=== PATIENT | female | born 1980 | race Caucasian/White ===

== ENCOUNTER 2017-05-05 14:36 | Inpatient (IN) | payer OTHER ==
[~2017-05-05] VITALS: Ht 160 cm; Wt 47.2 kg
--- NOTE | 2017-05-05 15:50 | NUR ---
36 year old FEMALE admitted to room # 527 for stabilization. 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 Compliant with admission procedure.
[2017-05-05 15:55] LABS: HEMATOCRIT 39.9 % (37.0-47.0); HEMOGLOBIN 12.6 g/dl (12.0-16.0); MEAN CELL VOLUME 91.5 fl (81.0-99.0); MEAN CORPUSCULAR HGB 28.9 pg (27.0-31.0); MEAN CORPUSCULAR HGB CONC 31.6 g/dl (33.0-37.0); MEAN PLATELET VOLUME 10.2 fl (9.6-12.3); PLATELET COUNT AUTOMATED 165 10*3/uL (130-400); RED BLOOD COUNT 4.36 10*6/uL (4.10-5.10); RED CELL DISTRI WIDTH 15.9 % (0-14.5); WHITE BLOOD COUNT 8.5 10*3/uL (4.8-10.8)
[2017-05-05 16:00] VITALS: BP 117/62
[2017-05-05 16:04] LABS: INTERNATIONAL NORM RATIO 1.1 (2.0-3.5)
[2017-05-05 16:15] LABS: ALBUMIN 3.4 gm/dl (3.1-4.5); ALKALINE PHOSPHATASE 436 U/L (45-117); BUN 13 mg/dl (7-24); CHLORIDE 104 mmol/L (98-107); CREATININE 0.74 mg/dL (0.55-1.02); LIPASE 342 U/L (73-393); POTASSIUM 3.3 mmol/L (3.5-5.1); SGPT/ALT 732 U/L (12-78); SODIUM 141 mmol/L (136-145); TOTAL PROTEIN 7.2 gm/dL (6.4-8.2)
[2017-05-05 16:16] LABS: BILIRUBIN 2+ (NEGATIVE); BLOOD 3+ (NEGATIVE); CLARITY CLEAR (CLEAR); COLOR YELLOW (YELLOW); GLUCOSE NEGATIVE (NEGATIVE); KETONE NEGATIVE (NEGATIVE); LEUKO ESTERASE NEGATIVE (NEGATIVE); NITRITE NEGATIVE (NEGATIVE); SPECIFIC GRAVITY 1.025 (1.005-1.030)
--- NOTE | 2017-05-05 16:17 | NUR ---
D/C PLAN: PATIENT WANTS TO GO TO OUTPATIENT TREATMENT. SHE WANTS TO GO TO [facility] AND [facility] FOR HER AFTERCARE PLAN. 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
[2017-05-05 16:20] LABS: BASOPHILS 1 % (0-1); BETA-HCG, QUANT < 1.0 mIU/mL (1-3); ETHYL ALCOHOL < 3.0 mg/dl (<3); PLATELET SUFFICIENCY NORMAL (NORMAL); SGOT/AST 1105 IU/L (3-35); TOTAL CELLS COUNTED 100 #CELLS
[2017-05-05 16:30] LABS: BACTERIA 1+; CALCIUM OXALATE CRYSTALS 1+; RBC 16-20 rbc/hpf (0-2)
[2017-05-05 16:31] LABS: URINE AMPHETAMINES < 1000 (1000ng/ml); URINE BARBITURATES < 200 (200ng/ml); URINE BENZODIAZEPINES > 200 (200ng/ml); URINE CANNABINOIDS (THC) < 50 (50ng/ml); URINE COCAINE > 300 (300ng/ml); URINE METHADONE < 300 (300ng/ml); URINE OPIATES > 300 (300ng/ml)
[2017-05-05 16:35] LABS: URINE PHENCYCLIDINE < 25 (25ng/ml)
[2017-05-05] MEDS ORDERED: NEURONTIN100 MG PO (19:11)
[2017-05-05] MEDS ORDERED: ZOLOFT100 MG PO (19:12)
[2017-05-05] MEDS ORDERED: ZOFRAN4 MG PO (19:13)
[2017-05-05] MEDS ORDERED: BUSPAR5 MG PO (19:13)
[2017-05-05] MEDS ORDERED: ACEBUTOLOL HCL200 MG PO (19:14)
--- NOTE | 2017-05-05 19:14 | NUR ---
MEDS VERIFIED WITH PHARMACY. DR Claudia WEST NOTIFIED.
[2017-05-05 20:00] VITALS: BP 140/83
[2017-05-05 23:00] VITALS: BP 137/61
--- NOTE | 2017-05-05 23:43 | NUR ---
Patient reports the following symptoms of withdrawal: body aches, leg pain, nausea and cocaine cravings. Patient given scheduled/PRN medication to control withdrawal symptoms. Close observation will be maintained.
[2017-05-06] VITALS: BP 106/65
--- NOTE | 2017-05-06 00:45 | NUR ---
Patient resting quietly in bed with eyes closed. PRN medications effective. Will continue to monitor. Call light within reach.
--- NOTE | 2017-05-06 01:17 | NUR ---
24 HR chart check completed.
[2017-05-06 04:00] VITALS: BP 106/64
--- NOTE | 2017-05-06 05:50 | NUR ---
Medicated with Vistaril po prn for anxiety. Will monitor effectiveness. Call light within reach.
[2017-05-06 06:22] LABS: ALBUMIN 3.2 gm/dl (3.1-4.5); BUN 9 mg/dl (7-24); CHLORIDE 107 mmol/L (98-107); CREATININE 0.58 mg/dL (0.55-1.02); POTASSIUM 3.5 mmol/L (3.5-5.1); SGPT/ALT 725 U/L (12-78); SODIUM 141 mmol/L (136-145); TOTAL PROTEIN 6.5 gm/dL (6.4-8.2)
[2017-05-06 06:27] LABS: SGOT/AST 1162 IU/L (3-35)
[2017-05-06 06:28] LABS: ALKALINE PHOSPHATASE 405 U/L (45-117)
[2017-05-06 08:00] VITALS: BP 130/74
--- NOTE | 2017-05-06 13:43 | NUR ---
PATIENT MEDICATED WITH VISTARIL AT THIS TIME FOR COMPLAINTS OF AGITATION. WILL MONITOR.
--- NOTE | 2017-05-06 14:35 | NUR ---
PER PATIENT, MEDICATION HAS BEEN EFFECIVE. NO FURTHER COMPLAINTS.
[2017-05-06 16:00] VITALS: BP 135/82
--- NOTE | 2017-05-06 16:26 | NUR ---
PATIENT MEDICATED WITH ZOFRAN & IMODIUM AT THIS TIME FOR COMPLAINTS OF NAUSEA AND DIARRHEA. WILL MONITOR FOR EFFECTIVENESS.
[2017-05-06 20:00] VITALS: BP 128/78
--- NOTE | 2017-05-06 20:29 | NUR ---
PT ASSSESSED AT THIS TIME, ALERT ORIENTED AND LETHARGIC. RESPONDS TO VERBAL STIMULI. HEART RATE REGULAR, 80 UPON AUSCULATATION. LUNGS CLEAR THROUGHOUT. ACTIVE BSX4, NO EDEMA NOTED. DENIES BODY ACHES AND STATES THAT SHE JUST WANTS TO SLEEP. ALL SAFETY MEASURES IN PLACE, CALL LIGHT IN REACH.
--- NOTE | 2017-05-06 21:30 | NUR ---
PT C/O RESTLESSNESS. MEDICATED WITH REQUIP AT THIS TIME, ALONG WITH ALL OTHER SCHEDULED HS MEDICATIONS. MEDS TAKEN WITH EASE. RESPIRATIONS EASY AND UNLABORED. NO S/S OF DISTRESS. PT CURRENTLY LYING IN BED.
--- NOTE | 2017-05-06 22:15 | NUR ---
PT REQUESTS TRAZODONE TO HELP HER SLEEP. MEDICATION ADMINISTERED PO AND TAKEN WITH EASE. WILL MONITOR FOR EFFECTIVENESS.
--- NOTE | 2017-05-06 22:20 | NUR ---
REQUIP EFFECTIVE PER PT. PT RESTING IN BED AT THIS TIME.
--- NOTE | 2017-05-06 23:15 | NUR ---
PT TRAZODONE EFFECTIVE. PT RESTING IN BED, RESPIRATIONS EASY. NO S/S OF DISTRESS.
[2017-05-07] VITALS: BP 120/78
--- NOTE | 2017-05-07 01:23 | NUR ---
24 HR chart check completed.
--- NOTE | 2017-05-07 04:13 | NUR ---
PT NOT AWAKENED PER [facility] POLICY. RESPIRATIONS EASY AND UNLABORED, 16. NO S/S OF PAIN OR DISTRESS.
--- NOTE | 2017-05-07 05:00 | NUR ---
PT C/O MUSCLE ACHES, ABDOMINAL CRAMPING, AND ANXIETY. ROBAXIN, BENTYL, AND VISTARIL ADMINISTERED PO AT THIS TIME. WILL MONITOR FOR EFFECTIVENESS. PT CURRENTLY LYING IN BED, ALL SAFETY MEASURES IN PLACE.
--- NOTE | 2017-05-07 05:59 | NUR ---
ROBAXIN, VISTARIL, AND BENTYL EFFECTIVE PER PT. PT RESTING IN BED, RESPIRATIONS EASY AND UNLABORED. CALL LIGHT IN REACH.
[2017-05-07 07:38] LABS: BUN 7 mg/dl (7-24); CHLORIDE 105 mmol/L (98-107); POTASSIUM 3.5 mmol/L (3.5-5.1); SODIUM 140 mmol/L (136-145)
[2017-05-07 07:47] LABS: ALKALINE PHOSPHATASE 377 U/L (45-117); CREATININE 0.67 mg/dL (0.55-1.02); SGPT/ALT 792 U/L (12-78); TOTAL PROTEIN 6.5 gm/dL (6.4-8.2)
--- NOTE | 2017-05-07 07:47 | NUR ---
prn motrin given for 7/10 back pain. prn requip given for restless legs.
[2017-05-07 07:51] LABS: SGOT/AST 1222 IU/L (3-35)
[2017-05-07 08:00] VITALS: BP 113/68
--- NOTE | 2017-05-07 08:45 | NUR ---
PRN MOTRIN AND REQUIP EFFECTIVE, PT REPORTS HER BACK PAIN 4/10 AND HER RESTLESS LEG HAS STOPPED.
--- NOTE | 2017-05-07 11:41 | NUR ---
prn vistaril given for anxiety at pt request.
--- NOTE | 2017-05-07 12:41 | NUR ---
PRN VISTARIL EFFECTIVE, PT REPORTS ANXIETY HAS LESSENED.
--- NOTE | 2017-05-07 13:40 | NUR ---
PRN BENTYL GIVEN FOR PT REPORT STOMACH PAIN 4/10.
--- NOTE | 2017-05-07 14:40 | NUR ---
PRN BENTYL EFFECTIVE, PT DENIES STOMACH PAIN.
[2017-05-07 16:00] VITALS: BP 138/95
--- NOTE | 2017-05-07 17:42 | NUR ---
PRN ZOFRAN GIVEN FOR PT REPORT NAUSEA, NO VOMITING.
--- NOTE | 2017-05-07 18:42 | NUR ---
PRN ZOFRAN EFFECTIVE, PT REPORTS NAUSEA HAS IMPROVED AND SHE WAS ABLE TO EAT HER DINNER.
[2017-05-07 20:00] VITALS: BP 112/68
--- NOTE | 2017-05-07 20:00 | NUR ---
PT ASSESSED AT THIS TIME, PT ALERT AND ORIENTED WITH LETHARGY. LUNGS CTA, HEART RATE REGULAR AND 80 BPM UPON AUSCULTATION. NORMOACTIVE BOWEL SOUNDS. PT DENIES ANY PAIN OR PROBLEMS WITH URINATION. PT C/O HEADACHE AND INSOMNIA. TRAZODONE AND IBUPROFEN ADMINISTERED AT THIS TIME. WILL MONITOR FOR EFFECTIVENESS. PT CURRENTLY LYING IN BED, RESPIRATIONS EASY, ENCOURAGED TO USE CALL LIGHT FOR ANY NEEDS OR QUESTIONS.
--- NOTE | 2017-05-07 21:00 | NUR ---
TRAZODONE AND IBUPROFEN EFFECTIVE. PT RESTING IN BED, RESPIRATIONS EASY AND UNLABORED. NO S/S OF DISTRESS.
[2017-05-08] VITALS: BP 124/69
--- NOTE | 2017-05-08 02:00 | NUR ---
PT RESTING IN BED, RESPIRATIONS EASY AND UNLABORED. NO S/S OF DISTRESS. ALL SAFETY MEASURES IN PLACE.
--- NOTE | 2017-05-08 03:58 | NUR ---
24 HR chart check completed.
[2017-05-08 05:34] LABS: SGPT/ALT 783 U/L (12-78)
[2017-05-08 05:40] LABS: SGOT/AST 1093 IU/L (3-35)
[2017-05-08 06:02] LABS: BASO # 0.1 10*3/uL (0.0-0.1); BASO % 1.1 % (0.0-1.0); EOS # 0.3 10*3/uL (0.0-0.4); EOS % 3.9 % (1.0-4.0); HEMATOCRIT 38.1 % (37.0-47.0); HEMOGLOBIN 12.5 g/dl (12.0-16.0); LYMPH # 2.4 10*3/uL (1.3-4.4); LYMPH % 29.1 % (27.0-41.0); MEAN CELL VOLUME 88.6 fl (81.0-99.0); MEAN CORPUSCULAR HGB 29.1 pg (27.0-31.0); MEAN CORPUSCULAR HGB CONC 32.8 g/dl (33.0-37.0); MEAN PLATELET VOLUME 10.4 fl (9.6-12.3); MONO # 1.2 10*3/uL (0.1-1.0); MONO % 14.2 % (3.0-9.0); NEUT # 4.3 10*3/uL (2.3-7.9); NEUT % 51.3 % (47.0-73.0); PLATELET COUNT AUTOMATED 198 10*3/uL (130-400); RED CELL DISTRI WIDTH 16.4 % (0-14.5); WHITE BLOOD COUNT 8.3 10*3/uL (4.8-10.8)
--- NOTE | 2017-05-08 06:04 | NUR ---
PT C/O ANXIETY, MUSCLE ACHES, AND ABDOMINAL CRAMPING. VISTARIL, ROBAXIN, AND BENTYL ADMINISTERED WITH SCHEDULED 0600 MEDICATION. ALL MEDS TAKEN WITH EASE. PT LYING IN BED, RESPIRATIONS EASY. CALL LIGHT IN REACH.
[2017-05-08 06:09] LABS: HEPATITIS B SURFACE AG Negative (Negative)
--- NOTE | 2017-05-08 07:00 | NUR ---
PRN MEDICATIONS EFFECTIVE. PT SLEEPING IN BED, RESPIRATIONS EASY. CALL LIGHT IN REACH.
[2017-05-08 08:00] VITALS: BP 122/64
[2017-05-08 10:10] LABS: HEPATITIS C VIRUS ANTIBODY >11.0 s/co (0.0-0.9)
--- NOTE | 2017-05-08 11:38 | NUR ---
PRN ROBAXIN GIVEN FOR 7/10 BACK PAIN. PRN VISTARIL GIVEN FOR PT REPORT ANXIETY. PRN ZOFRAN GIVEN FOR PT REPORT MILD NAUSEA.
[2017-05-08 12:00] VITALS: BP 103/64
--- NOTE | 2017-05-08 12:38 | NUR ---
PRN ROBAXIN EFFECTIVE , PT REPORTS BACK PAIN 5/10.
--- NOTE | 2017-05-08 12:38 | NUR ---
PRN ZOFRAN EFFECTIVE, PT REPORTS NAUSEA HAS LESSENED.
--- NOTE | 2017-05-08 12:38 | NUR ---
PRN VISTARIL EFFECTIVE, PT RESTING COMFORTABLY.
--- NOTE | 2017-05-08 13:45 | NUR ---
PRN MOTRIN GIVEN FOR 5/10 BACK PAIN UNRELIEVED BY ROBAXIN.
--- NOTE | 2017-05-08 14:42 | NUR ---
PRN MOTRIN EFFECTIVE, PT REPORT BACK PAIN 4/10.
[2017-05-08] MEDS ORDERED: ATARAX,VISTARIL50 MG PO (14:45)
[2017-05-08] MEDS ORDERED: GABAPENTIN100 M2 PO (14:45)
[2017-05-08 16:00] VITALS: BP 104/77
--- NOTE | 2017-05-08 17:15 | NUR ---
PRN VISTARIL GIVEN FOR PT REPORT OF ANXIETY.
--- NOTE | 2017-05-08 17:15 | NUR ---
PRN ZOFRAN GIVEN FOR PT REPORT OF MILD NAUSEA.
--- NOTE | 2017-05-08 18:15 | NUR ---
PRN VISTARIL EFFECTIVE,PT REPORTS ANXIETY HAS LESSENED.
--- NOTE | 2017-05-08 18:15 | NUR ---
PRN ZOFRAN EFFECTIVE, PT REPORTS NAUSEA HAS LESSENED.
[2017-05-08 20:00] VITALS: BP 117/72
--- NOTE | 2017-05-08 20:26 | NUR ---
PT GIVEN TRAZODONE PER PT REQUEST TO HELP WITH SLEEP. WILL REASSESS AND CONTINUE TO MONITOR.
--- NOTE | 2017-05-08 20:30 | NUR ---
PATIENT GIVEN REQUIP, ROBAXIN, AND TRAZADONE PER PT REQUEST FOR RESTLESSNESS AND TO HELP THEM SLEEP THROUGHOUT THE NIGHT. WILL CONTINUE TO MONITOR AND REASSESS.
--- NOTE | 2017-05-08 21:20 | NUR ---
PATIENT STILL RESTLESS IN ROOM AND WANTING MORE TRAZODONE TO HELP HER SLEEP. TRAZODONE GIVEN PER PT REQUEST.
--- NOTE | 2017-05-08 22:30 | NUR ---
PATIENT IS SLEEPING SOUNDLY IN THE ROOM. MEDICATION HAS BEEN EFFECTIVE. WILL CONTINUE TO MONITOR.
[2017-05-09] VITALS: BP 107/71
[2017-05-09 08:00] VITALS: BP 133/70
--- NOTE | 2017-05-09 08:04 | NUR ---
Shift chart check completed.
--- NOTE | 2017-05-09 08:18 | NUR ---
PATIENT MEDICATED WITH PO VISTARIL FOR ANXIETY AND PO ZOFRAN FOR NAUSEA
--- NOTE | 2017-05-09 09:15 | NUR ---
PATIENT STATES MEDICATION EFFECTIVE
--- NOTE | 2017-05-09 09:50 | NUR ---
ASKED PATIENT ABOUT FLU AND PNEUMONIA VACCINATIONS. PATIENT STATED SHE DID NOT WANT FLU OR PNEUMONIA BEFORE D/C
--- NOTE | 2017-05-09 10:02 | NUR ---
WENT OVER D/C INSTRUCTIONS WITH PATIENT. PATIENT VERBALIZED UNDERSTANDING THAT SHE NEEDS TO SEE A ROUTE SUPERVISOR. PATIENT GIVEN 2 SCRIPTS. HER BOYFRIEND CAME IN. HE WAS D/C FROM 5E. PATIENTS ARE AMBULATING TO THE EXIT. PATIENT IS D/C
== END 2017-05-09 10:02 | disposition home or self-care (01) | DRG 897 ==
LOC: 4E 14:36
PROVIDERS: Hospitalist; Internal Medicine Nephrology; ADMIT Internal Medicine
DX: F11.23 Opioid dependence with withdrawal (principal); B19.20 Unspecified viral hepatitis C without hepatic coma; E87.6 Hypokalemia; F14.10 Cocaine abuse, uncomplicated; F41.9 Anxiety disorder, unspecified; F13.10 Sedative, hypnotic or anxiolytic abuse, uncomplicated; R74.0 Nonspecific elevation of levels of transaminase and lactic acid dehydrogenase [LDH]; F17.200 Nicotine dependence, unspecified, uncomplicated; Z88.8 Allergy status to other drugs, medicaments and biological substances; Z71.6 Tobacco abuse counseling